=== PATIENT | male | born 1970 | race Caucasian/White ===

== ENCOUNTER 2024-09-15 11:18 | Inpatient (IN) | payer BC ==
[~2024-09-15] VITALS: Ht 175.3 cm; Wt 80.4 kg
[2024-09-15] MEDS: IV NS 0.9% 1,000 ML BAG IV ONE (11:46)
[2024-09-15 12:04] LABS: PLATELET COUNT (AUTO) 199 K/uL (150-450); RED BLOOD CELL COUNT(AUTO) 4.52 MIL/uL (4.5-6.0); RED CELL DISTRIBUTION WIDTH 14.7 % (11.5-15.0); WHITE BLOOD COUNT (AUTO) 8.5 K/uL (4.3-11.0)
[2024-09-15 12:14] LABS: ASPARTATE AMINOTRANSFERASE 11 U/L (15-37); TOTAL PROTEIN, SERUM 6.4 g/dL (6.4-8.2)
[2024-09-15 12:16] LABS: LACTIC ACID 0.8 mmol/L (0.4-2.0)
[2024-09-15] MEDS ORDERED: OMEG1CAP55 PO (12:37)
[2024-09-15] MEDS ORDERED: PROP10TA10 PO (12:37)
[2024-09-15] MEDS ORDERED: PANT40TA2 PO (12:37)
[2024-09-15] MEDS ORDERED: MIRT-90 PO (12:37)
[2024-09-15] MEDS ORDERED: FLUO20TA28 PO (12:37)
[2024-09-15] MEDS ORDERED: LITH300C4 PO (12:37)
[2024-09-15] MEDS ORDERED: PRAZ1CAP5 PO (12:37)
[2024-09-15] MEDS ORDERED: GABA600T12 PO (12:37)
[2024-09-15] MEDS ORDERED: ARIP15TA3 PO (12:37)
[2024-09-15] MEDS ORDERED: MAGN100T PO (12:37)
[2024-09-15] MEDS ORDERED: TRAZ150T75 PO (12:37)
[2024-09-15] MEDS ORDERED: BUPR-96 PO (12:37)
[2024-09-15] MEDS ORDERED: ONDANSETRON HCL/PF 4 MG/2 ML VIAL IVP PRN (15:30)
[2024-09-15] MEDS ORDERED: ZOLPIDEM TARTRATE 5 MG TABLET PO PRN (15:30)
[2024-09-15] MEDS ORDERED: MAG HYDROX/AL HYDROX/SIMETH 30 ML UDC PO PRN (15:30)
[2024-09-15] MEDS ORDERED: ACETAMINOPHEN 325 MG TABLET PO PRN (15:30)
[2024-09-15] MEDS ORDERED: PROPRANOLOL HCL 10 MG TABLET PO PRN (15:30)
[2024-09-15] MEDS ORDERED: MAGNESIUM HYDROXIDE 30 ML UDC PO PRN (15:30)
[2024-09-15] MEDS ORDERED: Z GUARD REMEDY 4 OZ OINT TP PRN (15:30)
[2024-09-15] MEDS ORDERED: Medication Not On Formulary EA (Omega-3 Acid Ethyl Esters (Lovaza) 1 GM) PO SCH (17:00)
[2024-09-15] MEDS: NICOTINE PATCH (21MG) 21 MG PATCH.TD24 TD SCH (18:17)
[2024-09-15] MEDS: LITHIUM CARBONATE (300 MG CAP) 300 MG CAPSULE PO SCH (18:17)
[2024-09-15] MEDS: GABAPENTIN 300 MG CAPSULE PO SCH (18:17)
[2024-09-15] MEDS: IV 1/2NS 1000 ML 1,000 ML IV PRN (18:20)
[2024-09-15 20:00] VITALS: BP 118/64; TEMP 98.2; O2SAT 95
[2024-09-15] MEDS: TRAZODONE 50 MG TABLET PO SCH (22:11)
[2024-09-15] MEDS: MIRTAZAPINE 15 MG TABLET PO SCH (22:11)
[2024-09-16] VITALS (7 sets, daily range): BP systolic 98–131; BP diastolic 53–89; TEMP 97.5–98.7; O2SAT 95–100
[2024-09-16 07:00] LABS: PLATELET COUNT (AUTO) 199 K/uL (150-450); RED BLOOD CELL COUNT(AUTO) 4.75 MIL/uL (4.5-6.0); RED CELL DISTRIBUTION WIDTH 14.4 % (11.5-15.0); WHITE BLOOD COUNT (AUTO) 7.3 K/uL (4.3-11.0)
[2024-09-16 07:25] LABS: CALCIUM, SERUM 8.7 mg/dL (8.5-10.1); CREATININE 1.0 mg/dL (0.6-1.3); PHOSPHORUS 4.0 mg/dL (2.5-4.9); SODIUM SERUM 139.0 mmol/L (136-145); UREA NITROGEN, BLOOD 10.0 mg/dL (7-18)
[2024-09-16] MEDS: ARIPIPRAZOLE 5 MG TABLET PO SCH (08:41)
[2024-09-16] MEDS: FLUOXETINE HCL 20 MG CAPSULE PO SCH (08:41)
[2024-09-16] MEDS: PANTOPRAZOLE 40 MG TABLET.DR PO SCH (08:41)
[2024-09-17] VITALS: BP 108/69; TEMP 98.3; O2SAT 94
[2024-09-17 04:00] VITALS: BP_SYST 105; BP_SYST 110; BP_SYST 115; BP_DIAS 65; BP_DIAS 67; BP_DIAS 73; TEMP 98.4; O2SAT 95
[2024-09-17 07:12] LABS: PLATELET COUNT (AUTO) 188 K/uL (150-450); RED BLOOD CELL COUNT(AUTO) 4.51 MIL/uL (4.5-6.0); RED CELL DISTRIBUTION WIDTH 14.1 % (11.5-15.0); WHITE BLOOD COUNT (AUTO) 7.9 K/uL (4.3-11.0)
[2024-09-17 07:21] LABS: CALCIUM, SERUM 8.6 mg/dL (8.5-10.1); CREATININE 1.0 mg/dL (0.6-1.3); PHOSPHORUS 4.4 mg/dL (2.5-4.9); SODIUM SERUM 144.0 mmol/L (136-145); UREA NITROGEN, BLOOD 9.0 mg/dL (7-18)
[2024-09-17 08:00] VITALS: BP_SYST 112; BP_SYST 116; BP_SYST 119; BP_DIAS 83; BP_DIAS 87; BP_DIAS 95; TEMP 98.4; O2SAT 96
[2024-09-17 08:01] VITALS: O2SAT 96
[2024-09-17] MEDS ORDERED: NICO-762 TD (09:53)
== END 2024-09-17 14:46 | disposition home or self-care (01) | DRG 312 ==
LOC: ER 11:32 → TELE1 16:48
PROVIDERS: ADMIT Student in an Organized Health Care Education/Training Program; ATTEND Student in an Organized Health Care Education/Training Program
DX: I95.1 Orthostatic hypotension (principal); F31.9 Bipolar disorder, unspecified; F32.A Depression, unspecified; Z79.899 Other long term (current) drug therapy; Z88.5 Allergy status to narcotic agent; F17.210 Nicotine dependence, cigarettes, uncomplicated; D64.9 Anemia, unspecified; F10.21 Alcohol dependence, in remission
CPT/HCPCS: 36415; 71045-TC; 80048-TC; 80076-TC; 83605-TC; 83735-TC; 84100-TC; 84443-TC; 84484-TC; 85025-TC; 87040-TC; 87081-TC; 93307-TC; 97116-TC; 97530-TC; A4223; G0378; J3490; J7030; J7060